=== PATIENT | female | born 1945 | race Caucasian/White ===

== ENCOUNTER 2017-10-23 16:57 | Inpatient (IN) | payer OTHER ==
[~2017-10-23] VITALS: Ht 165.1 cm; Wt 97.1 kg
[2017-10-23] MEDS ORDERED: HYDROcodone/APAP 5/325 TABLET ONE (17:55)
[2017-10-23] MEDS ORDERED: ONDANSETRON ODT 4 MG ONE (17:55)
[2017-10-23] MEDS ORDERED: ONDANSETRON ODT 4 MG PO ONE (18:00)
[2017-10-23] MEDS ORDERED: HYDROcodone/APAP 5/325 TABLET PO PRN (18:00)
[2017-10-23] MEDS ORDERED: PROPOFOL 10 MG/ML, 20ML IVPush ONE (19:00)
[2017-10-23] MEDS ORDERED: PROPOFOL 10 MG/ML, 20ML ONE (19:26)
[2017-10-23] MEDS ORDERED: MORPHINE SULFATE 4 MG/ML, 1ML IVPush PRN (19:30)
[2017-10-23 21:11] LABS: HEMATOCRIT 40.6 % (34.6-47.8); HEMOGLOBIN 13.6 g/dL (11.7-16.4); WHITE BLOOD COUNT 14.4 x10^3/uL (3.4-10)
[2017-10-23 21:24] LABS: BLOOD UREA NITROGEN 22 mg/dL (7-18)
[2017-10-23 22:00] VITALS: BP 127/67
[2017-10-23] MEDS ORDERED: morphine SULFATE 10 MG/ML, 1ML IV PRN (22:00)
[2017-10-23] MEDS ORDERED: DIPHENHYDRAMINE 50 MG/ML, 1ML IVPush PRN (22:00)
[2017-10-23 22:34] VITALS: BP 127/67
[2017-10-23 23:30] VITALS: BP_SYST 128; BP_SYST 131
[2017-10-23] MEDS: SODIUM CHLORIDE 0.9% 1,000 ML IV SCH (23:30)
[2017-10-23] MEDS: ENOXAPARIN 40 MG/0.4 ML SQ SCH (23:51)
[2017-10-24] VITALS (9 sets, daily range): BP systolic 106–133; BP diastolic 68–83
[2017-10-24] MEDS: SODIUM CHLORIDE 0.9% 1,000 ML IV SCH ×3 (09:27→21:35)
[2017-10-24] MEDS: ONDANSETRON 2MG/ML, 2ML IV PRN (09:45)
[2017-10-24] MEDS: HYDROcodone/APAP 5/325 TABLET PO PRN (15:57)
[2017-10-25 00:32] VITALS: BP_SYST 122; BP_SYST 136
[2017-10-25] MEDS: ENOXAPARIN 40 MG/0.4 ML SQ SCH (02:12)
[2017-10-25 02:26] VITALS: BP_SYST 116; BP_SYST 137
[2017-10-25 02:28] VITALS: BP 119/69
[2017-10-25 04:45] VITALS: BP_SYST 138; BP_SYST 148
[2017-10-25] MEDS: ONDANSETRON 2MG/ML, 2ML IV PRN (05:01)
[2017-10-25] MEDS: HYDROcodone/APAP 5/325 TABLET PO PRN (05:02)
[2017-10-25] MEDS: SODIUM CHLORIDE 0.9% 1,000 ML IV SCH (05:35)
[2017-10-25 10:23] VITALS: BP 117/65
[2017-10-25] MEDS ORDERED: DOCU-131 PO (10:38)
[2017-10-25] MEDS ORDERED: ONDA4TAB7 PO (10:38)
[2017-10-25] MEDS ORDERED: HYDR-3240 PO (10:38)
[2017-10-25 13:04] VITALS: BP 106/63
== END 2017-10-25 14:15 | disposition home or self-care (01) | DRG 563 ==
LOC: ED 20:03 → EDIP 20:56 → 4NOR 22:00 → DCLOUNGE 10-25 14:00
PROVIDERS: ADMIT Family Medicine; ATTEND Family Medicine
PROC: 0SSDXZZ Reposition Left Knee Joint, External Approach (ICD-10-PCS; principal; 2017-10-23)
DX: S83.115A Anterior dislocation of proximal end of tibia, left knee, initial encounter (principal); E88.81 Metabolic syndrome and other insulin resistance; W01.0XXA Fall on same level from slipping, tripping and stumbling without subsequent striking against object, initial encounter; Z85.048 Personal history of other malignant neoplasm of rectum, rectosigmoid junction, and anus; Y93.89 Activity, other specified; Z87.891 Personal history of nicotine dependence; Y92.89 Other specified places as the place of occurrence of the external cause; Y99.8 Other external cause status
CPT/HCPCS: 36415; 80048; 85025; 99152; 99153; J1650; J2405; Q0162; J2270; J7030

== ENCOUNTER → 2018-10-24 | Outpatient (CLI) | payer OTHER ==
[~2018-10-24] MED LIST: DOCU-131 PO; HYDR-3240 PO; ONDA4TAB7 PO
== END | disposition home or self-care (01) ==
LOC: CFH 09:32
PROVIDERS: ATTEND Nurse Practitioner
DX: Z13.820 Encounter for screening for osteoporosis (principal)
CPT/HCPCS: 77080

== ENCOUNTER → 2020-01-10 | Outpatient (CLI) | payer OTHER | END | disposition home or self-care (01) | LOC: CFH 09:39 | PROVIDERS: ATTEND Internal Medicine Cardiovascular Disease | DX: I08.1 Rheumatic disorders of both mitral and tricuspid valves (principal); I48.91 Unspecified atrial fibrillation; Z85.038 Personal history of other malignant neoplasm of large intestine; Z85.048 Personal history of other malignant neoplasm of rectum, rectosigmoid junction, and anus | CPT/HCPCS: 93306 ==